=== PATIENT | male | born 1965 | race Caucasian/White ===

== ENCOUNTER 2016-06-26 08:50 | Emergency (ER) | payer BC ==
[2016-06-26 09:19] VITALS: BP 145/81
--- NOTE | 2016-06-26 09:40 | UC ---
Lower Extremity/Ankle HPI - HPI Summary HPI Summary: 50 yo male got his right foot caught in pjs and inverted it pain with wt bearing occurred yesterday able to bear wt with CAM boot hx right foot fx x 2 hx right foot surgery as a teen thinks part of a bone was removed - History of Current Complaint Chief Complaint: UCLowerExtremity Stated Complaint: FOOT COMPLAINT Time Seen by Provider: 06/26/16 09:34 Hx Obtained From: Patient Onset/Duration: Sudden Onset Severity Initially: Moderate Severity Currently: Moderate Pain Intensity: 4 - worse with wt bearing Pain Scale Used: 0-10 Numeric Aggravating Factor(s): Standing, Ambulation Alleviating Factor(s): Rest, Elevation Able to Bear Weight: Yes - with limp - Allergies/Home Medications Allergies/Adverse Reactions: Allergies Allergy/AdvReac Type Severity Reaction Status Date / Time Ciprofloxacin [From Cipro] Allergy Unknown UNK Verified 06/26/16 09:14 Latex Allergy Rash Verified 06/26/16 09:14 PMH/Surg Hx/FS Hx/Imm Hx Previously Healthy: Yes - hx neuropathy Endocrine History Of: Denies: Diabetes, Hyperthyroidism, Hypothyroidism Cardiovascular History Of: Reports: Hypertension - controlled with medication Denies: Cardiac Disorders Neurological History Of: Denies: TIA, Seizures Psychological History Of: Reports: Anxiety Denies: Depression - Surgical History Surgical History: Yes Surgery Procedure, Year, and Place: undescended testicle, 1967. Foot Fracture, 1977. Tonsilectomy, 1983. Vein Stripping, 1989. Appendectomy, 2007. Maurice-n-Y /WLS, 2007. Venous Closure 2008, 2009. Gallbladder removed, 2009 - Family History Known Family History: Positive: Cardiac Disease, Hypertension, Diabetes - Social History Alcohol Use: Rare Substance Use Type: None, Marijuana Substance Use Comment - Amount & Last Used: medical marijuana Smoking Status (MU): Never Smoked Tobacco Review of Systems Constitutional: Negative Skin: Negative Eyes: Negative ENT: Negative Respiratory: Negative Cardiovascular: Negative Gastrointestinal: Negative Genitourinary: Negative Motor: Negative Neurovascular: Negative Musculoskeletal: Arthralgia, Myalgia Neurological: Negative Psychological: Negative All Other Systems Reviewed And Are Negative: Yes Physical Exam Triage Information Reviewed: Yes Appearance: Pain Distress - with wt bearing, Other: - BMI- 48.7 Vital Signs: Initial Vital Signs Temp 97.6 F 06/26/16 09:08 Pulse 63 06/26/16 09:08 Resp 18 06/26/16 09:08 BP 145/81 06/26/16 09:08 Pulse Ox 99 06/26/16 09:08 Vital Signs Reviewed: Yes Eyes: Positive: Conjunctiva Clear ENT: Positive: Hearing grossly normal. Negative: Nasal congestion, Nasal drainage, Trismus, Muffled/hoarse voice Neck: Positive: Supple Respiratory: Positive: Lungs clear, Normal breath sounds, No respiratory distress, No accessory muscle use Cardiovascular: Positive: RRR, No Murmur Musculoskeletal: Positive: Strength Intact Neurological: Positive: Alert Psychological Exam: Normal Skin Exam: Normal Lower Extremity Course/Dx - Course Course Of Treatment: will continue to see his PMD for BP evaluation and treatment. unable to use crutches due to neuropathy. has boot with him from prior foot fracture - Differential Dx/Diagnosis Provider Diagnoses: closed fracture of proximal right 5th metatarsal ( nondisplaced) Discharge - Discharge Plan Condition: Stable Disposition: HOME Patient Education Materials: Foot Fracture in Adults (ED) Referrals: Alejandro Mancuso MD [Medical Doctor] - As Soon As Possible Additional Instructions: foot fracture -nondisplaced fracuture of proximal 5th metatarsal (right) rest elevate joseph ice CAM boot knee scooter call your pain specialist re pain medications Images Feet (Multiple View): 1 - painful here
--- NOTE | 2016-06-26 10:13 | RAD ---
HISTORY: Tender fifth foot, metatarsal injury, right COMPARISONS: None VIEWS: 3, Frontal, lateral, and oblique views of the right foot FINDINGS: BONE DENSITY: Normal. BONES: There is a nondisplaced fracture of the proximal fifth metatarsal, approximately between 1 cm and 2.9 cm from the articular surface JOINTS: There is no arthropathy. ALIGNMENT: There is no dislocation. SOFT TISSUES: Unremarkable. OTHER FINDINGS: None. IMPRESSION: NONDISPLACED TRANSVERSE FRACTURE OF THE PROXIMAL FIFTH METATARSAL
== END 2016-06-26 10:53 | disposition home or self-care (01) ==
LOC: UCEAST 08:50
DX: S92.354A Nondisplaced fracture of fifth metatarsal bone, right foot, initial encounter for closed fracture (principal); X58.XXXA Exposure to other specified factors, initial encounter; Y93.9 Activity, unspecified; Y92.9 Unspecified place or not applicable; Z88.1 Allergy status to other antibiotic agents; I10 Essential (primary) hypertension; Z90.49 Acquired absence of other specified parts of digestive tract; F12.90 Cannabis use, unspecified, uncomplicated
CPT/HCPCS: 99212; G0463

== ENCOUNTER → 2016-06-29 06:46 | Day surgery (SDC) | payer BC ==
[~2016-06-29 06:46] MED LIST: Buffered Lidocaine 1% SYR 3ML* 3 ML/SYR SYRINGE INTRADERM ONE; Bupivacaine 0.5% SDV PF* 30 ML VIAL ONE; Famotidine TAB* 20 MG PO ONE; HYDROcodone/ACETAMIN 5-325 MG* 1 TAB ONE; HYDROcodone/ACETAMIN 5-325 MG* 1 TAB PO PRN; Ketorolac INJ* 30 MG/ML 1 ML VIAL IV PRN; Ketorolac INJ* 30 MG/ML 1 ML VIAL ONE; Lidocaine 1% INJ* 10 MG/ML 30 ML SDV ONE; Metoclopramide TAB* 10 MG PO ONE; Midazolam* 1 MG/ML 2 ML VIAL (2 MG) ONE; Propofol* 10 MG/ML 20 ML BTL IV PUSH ONE; Propofol* 500 MG/50 ML BTL ONE; Sodium Citrate/Citric Acid* 15 ML UDC PO ONE; ceFAZolin 1 GM VIAL(*) ONE; ceFAZolin 2 GM PREMIX (*) 2 GM/50 ML BAG IVPB ONE; fentaNYL* 50 MCG/ML 2 ML VIAL (100 MCG VIAL) IV PRN; fentaNYL* 50 MCG/ML 2 ML VIAL (100 MCG VIAL) ONE
[2016-06-29 10:18] VITALS: BP 144/71
--- NOTE | 2016-06-29 12:03 | OP ---
DATE OF OPERATION: 06/29/16 - [facility] DATE OF : 65 SURGEON: Jamie Lehman DPM HOUSE PARENT: None. ANESTHESIOLOGIST: Alejandro Whaley MD ANESTHESIA: MAC with local. PRE-OPERATIVE DIAGNOSIS: Recurrent fracture of fifth metatarsal on right foot. POST-OPERATIVE DIAGNOSIS: Recurrent fracture of fifth metatarsal on right foot. OPERATIVE PROCEDURE: Open reduction with internal fixation of fifth metatarsal on right foot. PATHOLOGY: None. HEMOSTASIS: Pneumatic ankle tourniquet. ESTIMATED BLOOD LOSS: Less than 10 cc. MATERIALS: A 4.0 mm partially threaded Synthes screw. INDICATIONS: The patient with recurrent fracture within a 6-month period, in the proximal aspect of the fifth metatarsal. While there is minimal displacement noted, the area appears to be in a very close proximity to recent fracture, which was healed as of March 2016. He tripped just two nights ago , felt a sharp pain and heard a crack, and radiographs confirmed fracture. Open reduction with internal fixation recommended due to recurrence of this fracture, fat stability as well as offer some compression and ideally to improve chances and rate of healing. DESCRIPTION OF PROCEDURE: The patient was brought to the operating room, placed on the operating room table in supine position. The anesthesia department administered IV sedation and a peripheral nerve block was performed about the right foot with a 1:1 mixture of 1% lidocaine plain and 0.5% Marcaine plain. The right foot was prepped and draped in the usual fashion. An Esmarch bandage was utilized to exsanguinate the right foot and the pneumatic ankle tourniquet was inflated to 250 mmHg about a well-padded right ankle. Attention was directed to the dorsolateral aspect of the right foot over the base of the fifth metatarsal region. The linear incision was deepened through subcutaneous tissues with care being taken to retract neurovascular structures and to cauterize superficial bleeders as needed. Dissection was carried down to the periosteum and deep fascia where a fascial plane was created. With adequate exposure, a linear periosteal incision was made at the styloid process. The reflected tissue to allow for adequate access and implant of the screw. The fracture site was visualized and there was noted to be local hematoma, no gross displacement. Using a 2.5 mm drill proximally to distally through the fifth metatarsal with fluoroscopy guidance. A countersink was used and then a size 50 mm 4.0 partially threaded Synthes screw was placed longitudinally across the fracture site while compressing and reducing the fracture site. This being done , fluoroscopy was used to confirm placement of the screw as well as reduction and stability of the fracture. This surgical site was flushed with copious amounts of normal sterile saline. The periosteal deep fascia was reapproximated with 4-0 Polysorb. Subcutaneous tissues were reapproximated with 4- 0 Polysorb and skin was closed with 4-0 and 5-0 nylon. Surgical site was dressed with Xeroform gauze, sterile compressive dressing with 4x4 gauze, Kiran and some Webril and a Coban wrap for compression. The patient will be instructed to be nonweightbearing, he has a knee to facilitate this, he also has a cam boot to protect the foot if he does put weight on his heel. Having appeared to have tolerated the procedure and anesthesia well, the patient was transported via cart from the operating room to Recovery in satisfactory condition with cap refill less than 3 seconds to all digits of the right foot. [id number]/[facility] #: [id number] MIRTA
--- NOTE | 2016-06-30 15:21 | RAD ---
INDICATION: Tender fifth metatarsal, right fifth metatarsal fracture, trauma, pain COMPARISONS: June 26, 2016 TECHNIQUE: Fluoroscopy was provided for a surgical procedure. Total fluoroscopy time is: 2 minutes, 4 seconds FINDINGS: Spot images demonstrate internal fixation of the proximal fifth metatarsal IMPRESSION: FLUOROSCOPY WAS PROVIDED FOR A SURGICAL PROCEDURE CPT II Codes: 6045F
== END | disposition home or self-care (01) ==
LOC: OREAST 06:46
PROVIDERS: ATTEND Podiatrist Foot Surgery
DX: S92.351A Displaced fracture of fifth metatarsal bone, right foot, initial encounter for closed fracture (principal); W18.40XA Slipping, tripping and stumbling without falling, unspecified, initial encounter; Y92.9 Unspecified place or not applicable; E66.01 Morbid (severe) obesity due to excess calories; I10 Essential (primary) hypertension; G47.33 Obstructive sleep apnea (adult) (pediatric); N40.0 Benign prostatic hyperplasia without lower urinary tract symptoms; M19.90 Unspecified osteoarthritis, unspecified site; Z88.1 Allergy status to other antibiotic agents; Z98.84 Bariatric surgery status; F41.9 Anxiety disorder, unspecified; F32.9 Major depressive disorder, single episode, unspecified; G60.8 Other hereditary and idiopathic neuropathies
CPT/HCPCS: 76000; C1713; J0690; J1885; J2250; J2704; J3010

== ENCOUNTER 2019-01-06 10:39 | Emergency (ER) | payer BC ==
--- OUTSIDE RECORDS SUMMARY | 2019-01-06 11:24 | XMS REPORT | Continuity of Care Document ---
:1965 External Reference #:[id number] Author Name Marika Torres M.D. (transmitted by agent of provider Wendy Tellez) Address [address] [address] Care Team Providers Name Role Phone Kwame Mcclendon MD - Endocrinology, Care Team Information Group Home Supervisor Diabetes & Metabolism Problems Active Problems Provider Date Benign essential hypertension Marika Torres M.D. Onset: 05/17/2011 Electrocardiogram abnormal Marika Torres M.D. Onset: 05/17/2011 Mitral valve disorder Marika Torres M.D. Onset: 05/17/2011 Morbid obesity Marika Torres M.D. Onset: 07/26/2011 Chest pain Marika Torres M.D. Onset: 07/26/2011 Aortic valve disorder Marika Torres M.D. Onset: 05/17/2012 Dyspnea Marika Torres M.D. Onset: 01/15/2014 Edema Marika Torres M.D. Onset: 01/15/2014 Essential hypertension Marika Torres M.D. Onset: 09/24/2015 Nonunion of fracture Luis Aguilera MD Onset: 04/13/2017 Congenital pes cavus Luis Aguilera MD Onset: 04/13/2017 Idiopathic progressive polyneuropathy Luis Aguilera MD Onset: 04/13/2017 Social History Type Date Description Comments Sex Unknown Tobacco Use Start: Unknown Never Smoked Cigarettes Smoking Status Reviewed: 12/11/18 Never Smoked Cigarettes ETOH Use Never used alcohol Recreational Drug Use Medical marijuana prn Tobacco Use Start: Unknown Patient has never smoked Exercise Type/Frequency Does not exercise Allergies, Adverse Reactions, Alerts Active Allergies Reaction Severity Comments Date Latex 01/04/2006 Cipro elevated bilirubin 05/17/2011 Enviromental Allergies 09/23/2018 Medications Active Medications SIG Qnty Indications Ordering Date Provider Hydrochlorothiazide 1 by mouth 90tabs Qutayb S. 01/15/2014 25mg Tablets every day Pasha Torres Albuterol Inhalation 2 Puffs qid Jennataybbjorn S. 01/04/2006 90mcg/Dose prn Pasha Torres Aerosol C-Pap For apnea tayb S. 01/04/2006 Capsules Pasha Torres Cymbalta 1 tablet po Unknown 60mg Caps DR Part tid Flovent HFA inhale 1 puff 1units Unknown 220mcg/Act Aerosol po bid prn Tamsulosin HCL 1 po qd 30caps Unknown 0.4mg Capsules Finasteride 1 po qd 90tabs Unknown 5mg Tablets Lisinopril 1 po qd 30tabs Unknown 40mg Tablets Lyrica tid Unknown 100mg Solution Viagra as needed Enio Szymanski, 100mg Tablets Medical Marijuana as needed Unknown Vapor (Dr. Marsh) Belbuca 1 film by Unknown 75mcg Film mouth twice daily Saxenda inject subcu Unknown 18mg/3ML Solution once a day Pen-Inject Medications Administered in Office Medication SIG Qnty Indications Ordering Provider Date Depomedrol 80MG Tyler Huizar M.D. 08/25/2011 Injection Immunizations Description No Information Available Vital Signs Date Vital Result Comment 12/11/2018 2:07pm BP Systolic Sitting 102 mmHg recheck LA, reg cuff BP Diastolic Sitting 62 mmHg recheck LA, reg cuff BP Systolic Standing 103 mmHg recheck LA, home unit BP Diastolic Standing 72 mmHg recheck LA, home unit 12/11/2018 1:44pm Height 73 inches 6'1" Weight 349.12 lb with shoes Heart Rate 58 /min radial, regular BP Systolic Sitting 126 mmHg LA, reg cuff BP Diastolic Sitting 66 mmHg LA, reg cuff BP Systolic Standing 90 mmHg LA, reg cuff BP Diastolic Standing 58 mmHg LA, reg cuff BP Systolic Lying Down 116 mmHg LA sitting, home unit BP Diastolic Lying Down 80 mmHg LA sitting, home unit BMI (Body Mass Index) 46.1 kg/m2 Ejection Fraction 60-65% Echocardiogram 12/26/2017 Results Description No Information Available Procedures Date Code Description Status 12/11/2018 44993 EKG Tracing & Interpretation Completed 07/04/2018 88042 EKG Tracing & Interpretation Completed 02/01/2016 12246578 Colonoscopy Completed Medical Devices Description No Information Available Encounters Type Date Location Provider Dx Diagnosis Office Visit 09/23/2018 Pulmonology And Daniela Victoria, G47.33 Obstructive sleep 9:30a Sleep Services Of apnea (adult) Mamie (pediatric) R53.83 Other fatigue Office Visit 07/04/2018 11:30a [facility] Dalila Ace I71.9 Aortic aneurysm of Of Mamie Meyer, N.P. unspecified site, without rupture I10 Essential (primary) hypertension G47.30 Sleep apnea, unspecified Assessments Date Code Description Provider 12/11/2018 G47.33 Obstructive sleep apnea (adult) Marika Torres M.D. (pediatric) 12/11/2018 I77.819 Aortic ectasia, unspecified site Marika Torres M.D. 12/11/2018 I10 Essential (primary) hypertension Marika Torres M.D. 09/23/2018 G47.33 Obstructive sleep apnea (adult) Daniela Victoria MD (pediatric) 09/23/2018 R53.83 Other fatigue Daniela Victoria MD 07/04/2018 R53.83 Other fatigue Marika Torres M.D. 07/04/2018 I71.9 Aortic aneurysm of unspecified site, Dalila Meyer, N.P. without rupture 07/04/2018 I10 Essential (primary) hypertension Marika Torres M.D. 07/04/2018 I10 Essential (primary) hypertension Dalila Meyer, N.P. 07/04/2018 G47.30 Sleep apnea, unspecified Kobe Montgomery.Josephine. Plan of Treatment Future Appointment(s):12/27/2018 10:00 am - Nurse Visit cc at [facility]12/30/2018 1:00 pm - [facility] Schedule at [facility]2018 - Marika Torres M.D.G47.33 Obstructive sleep apnea (adult) ( pediatric)I77.819 Aortic ectasia, unspecified siteNew Orders:Echocardiogram, Scheduled: 12/30/18Follow up:10 months ovI10 Essential (primary) hypertensionFollow up:nurse BP check 2 weeks Functional Status Description No Information Available Mental Status Description No Information Available Referrals Refer to Reason for Referral Status Appt Date Daniela Victoria MD to re-establish for DAVI saw Dr. olson in the Sent past [address] [place] [phone]
--- OUTSIDE RECORDS SUMMARY | 2019-01-06 11:24 | XMS REPORT | Continuity of Care Document ---
:1965 External Reference #:[id number] Author Name RALPH Bose Address [address] [facility] [place] [address] Care Team Providers Name Role Phone Kwame Mcclendon M.D. - Family Medicine Care Team Information Special Librarian Problems Active Problems Provider Date Body mass index 40+ - severely obese Laron Hayes Onset: 02/07/2018 Varicose veins of lower extremity Laron Hayes Onset: 02/07/2018 Social History Type Date Description Comments Sex Unknown ETOH Use Very limited Tobacco Use Start: Unknown Patient has never smoked Recreational Drug Use Never Used Drugs Recreational Drug Use Uses medical marijuana Smoking Status Reviewed: 07/02/18 Patient has never smoked Allergies, Adverse Reactions, Alerts Active Allergies Reaction Severity Comments Date Latex Contact dermatitis, Urticaria 02/07/2018 Cipro elevated liver count 02/07/2018 Medications Active Medications SIG Qnty Indications Ordering Date Provider Belbuca 2 daily Unknown 300mcg Film Lyrica 3 x's daily Unknown 100mg Capsules Cymbalta 3 x's Kwame Mcclendon M.D. 60mg Caps DR Part Baclofen as needed, Unknown 10mg Tablets max 3x's daily Tamsulosin HCL 1x Enio Szymanski, 0.4mg Capsules M.D. Finasteride 1x Enio Szymanski, 5mg Tablets M.D. Hydrochlorothiazide 1x Maghaydquiana, 25mg Tablets Pasha Hairston Amlodipine Besylate 1x Maghaydquiana, 10mg Tablets Pasha Hairston Lisinopril 1x Maghaydah, 40mg Tablets Pasha Hairston SaxKwame Gonzales M.D. 18mg/3ML Solution Pen-Inject Medical Marijuanna Unknown Liothyronine Sodium 1X a . day Kwame Mcclendon M.D. 25mcg Tablets Immunizations CPT Code Status Date Vaccine Lot # [id number] Given 01/07/2018 Influenza Vaccine 29040-145-25 Vital Signs Date Vital Result Comment 12/05/2018 10:33am Height 75 inches 6'3" Weight 382.00 lb BP Systolic 129 mmHg BP Diastolic 75 mmHg BMI (Body Mass Index) 47.7 kg/m2 Heart Rate 59 /min Respiratory Rate 18 /min 09/17/2018 8:57am Height 75 inches 6'3" Weight 382.00 lb BP Systolic 131 mmHg BP Diastolic 65 mmHg BMI (Body Mass Index) 47.7 kg/m2 Heart Rate 68 /min Respiratory Rate 18 /min Results Description No Information Available Procedures Date Code Description Status 09/17/2018 03425 Injection Sclerosing Solution Multiple Veins Same Leg Completed 08/15/2018 31545 Injection Sclerosing Solution Multiple Veins Same Leg Completed 07/16/2018 53235 Injection Sclerosing Solution Multiple Veins Same Leg Completed 06/28/2018 43758 Injection Sclerosing Solution Multiple Veins Same Leg Completed Medical Devices Description No Information Available Encounters Type Date Location Provider Dx Diagnosis Office Visit 12/05/2018 [facility] RALPH Bose I83.892 Varicose veins of l 10:30a low extrem with other complications I83.891 Varicose veins of r low extrem with other complications Z68.42 Body mass index (BMI) 45.0-49.9, adult Assessments Date Code Description Provider 12/05/2018 I83.892 Varicose veins of left lower extremity with other RALPH Bose complicati 12/05/2018 I83.891 Varicose veins of right lower extremity with RALPH Bose other complicat 12/05/2018 Z68.42 Body mass index (BMI) 45.0-49.9, adult RALPH Bose 09/17/2018 I83.892 Varicose veins of left lower extremity with other Khushbu Olson, RALPH complicati 09/17/2018 Z68.42 Body mass index (BMI) 45.0-49.9, adult RALPH Bose 08/15/2018 I83.892 Varicose veins of left lower extremity with other Khushbu Wesley, RALPH complicati 07/16/2018 I83.892 Varicose veins of left lower extremity with other Khushbu Wesley, RALPH complicati 07/16/2018 Z68.41 Body mass index (BMI) 40.0-44.9, adult RALPH Bose 06/28/2018 I83.891 Varicose veins of right lower extremity with RALPH Bose other complicat 06/28/2018 Z68.41 Body mass index (BMI) 40.0-44.9, adult RALPH Bose Plan of Treatment Future Appointment(s):02/06/2019 10:30 am - RALPH Bose at [facility] [id number]/06 10:30 am - RALPH Bose at [facility] Functional Status Description No Information Available Mental Status Description No Information Available Referrals Description No Information Available
[2019-01-06 11:32] VITALS: BP 138/68
--- NOTE | 2019-01-06 11:43 | UC ---
Throat Pain/Nasal Jordan HPI - HPI Summary HPI Summary: 53 year old male with PMH + for gastric bypass, prostatitis presents with S/S of cold similar to symtpoms his family had last week, however their symptoms resolved and his developed into increased nasal congestion, worse on L side, chills, fever worse at night, Tmax 101, nausea, non-productive cough, headache- frontal. Patient also c/o anal pain x 2-3 days, worse with sitting, defecation, feels like has to have bowel motion frequently. + constipation earlier in week, but bowel irregular due to gastric bypass. Also has HTN, has had medications adjusted due to recent weight loss and is having low blood pressures. no ear pain, throat pain. - History of Current Complaint Chief Complaint: UCRespiratory Stated Complaint: FLU SYMPTOMS Time Seen by Provider: 01/06/19 11:36 Hx Obtained From: Patient Onset/Duration: Sudden Onset, Lasting Days Severity: Moderate Pain Intensity: 9 Pain Scale Used: 0-10 Numeric Cough: Nonproductive Associated Signs & Symptoms: Positive: Sinus Discomfort, Nasal Discharge, Fever. Negative: Dysphagia - Allergies/Home Medications Allergies/Adverse Reactions: Allergies Allergy/AdvReac Type Severity Reaction Status Date / Time ciprofloxacin [From Cipro] Allergy Unknown Verified 01/06/19 11:32 Reaction Details latex Allergy Rash Verified 01/06/19 11:32 Home Medications: Home Medications Buprenorphine HCl [Belbuca] 450 mcg BU 01/06/19 [History] Liraglutide [Saxenda] 3 mg SQ 01/06/19 [History] PMH/Surg Hx/FS Hx/Imm Hx Previously Healthy: Yes Cardiovascular History: Hypertension GI/ History: Other - Surgical History Surgical History: Yes Surgery Procedure, Year, and Place: undescended testicle, 1967. Foot Fracture, 1977. Tonsilectomy, 1983. Vein Stripping, 1989. Appendectomy, 2007. Maurice-n-Y /WLS, 2007. Venous Closure 2008, 2009. Gallbladder removed, 2009 - Family History Known Family History: Positive: Cardiac Disease, Hypertension, Diabetes - Social History Alcohol Use: Rare Substance Use Type: None Substance Use Comment - Amount & Last Used: medical marijuana for neuropathy Smoking Status (MU): Never Smoked Tobacco Review of Systems All Other Systems Reviewed And Are Negative: Yes Constitutional: Positive: Fever, Chills, Fatigue ENT: Positive: Nasal Discharge, Sinus Congestion, Sinus Pain/Tenderness Respiratory: Positive: Cough Genitourinary: Positive: Other - anal pain Psychological: Positive: Negative Is Patient Immunocompromised?: No Physical Exam Triage Information Reviewed: Yes Appearance: No Pain Distress, Well-Nourished, Ill-Appearing - minimal Vital Signs: Initial Vital Signs Temp 97.7 F 01/06/19 11:28 Pulse 75 01/06/19 11:28 Resp 18 01/06/19 11:28 BP 138/68 01/06/19 11:28 Pulse Ox 100 01/06/19 11:28 Vital Signs Reviewed: Yes Eyes: Positive: Conjunctiva Clear ENT: Positive: Pharynx normal, TMs normal, Sinus tenderness - b/l frontal, max, L>R, Uvula midline. Negative: Pharyngeal erythema, TM bulging, TM dull, TM red , Tonsillar swelling, Tonsillar exudate Neck: Positive: Supple, Nontender, No Lymphadenopathy Respiratory: Positive: Chest non-tender, Lungs clear, Normal breath sounds, No respiratory distress, No accessory muscle use. Negative: Respiratory distress, Crackles, Rhonchi, Stridor, Wheezing Cardiovascular: Positive: RRR, No Murmur Abdomen Description: Positive: Nontender, No Organomegaly, Soft. Negative: CVA Tenderness (R), CVA Tenderness (L), Distended, Guarding, Hepatomegaly, McBurney' s Point Tenderness, Splenomegaly Male Genital Exam: Positive: Other - normal appearing rectum externally, TTP at 12 position with internal exam with no masses palpated, no abscess, no erythema , drainage noted. no LAD. Neurological: Positive: Alert Psychological Exam: Normal Skin Exam: Normal Throat Pain/Nasal Course/Dx - Course Course Of Treatment: Sinusitis: - Antibiotic as directed, three times daily x 7 days - Increase fluid intake - Tylenol as needed for pain, fever - Go to ER with fever >101, increased pain, lightheadedness, dizziness. Rectal Fissure: - Medication as needed for pain - If symptoms continue, follow up with primary physician within 2-3 days Urinary symptoms - Urine sent for culture, will follow up in 2-3 days with you if cultures positive - Differential Dx/Diagnosis Differential Diagnosis/HQI/PQRI: Sinusitis, Tonsillitis, URI Provider Diagnosis: Sinusitis Discharge ED - Sign-Out/Discharge Documenting (check all that apply): Patient Departure All imaging exams completed and their final reports reviewed: No Studies - Discharge Plan Condition: Good Disposition: HOME Prescriptions: Amoxicillin PO (*) [Amoxicillin 500 MG CAP*] 500 mg PO TID #21 cap Hemorrhoidal SUPP* [Preparation H Supp*] 1 supp NC Q12H PRN #1 box PRN Reason: rectal spasm Lidocaine 2% JELLY* 5 ml TOPICAL TID PRN #1 tube PRN Reason: rectal pain Patient Education Materials: Anal Fissure (ED), Sinusitis (ED) Forms: *Work Release Referrals: Kwame Mcclendon MD [Primary Care Provider] - Additional Instructions: Sinusitis: - Antibiotic as directed, three times daily x 7 days - Increase fluid intake - Tylenol as needed for pain, fever - Go to ER with fever >101, increased pain, lightheadedness, dizziness. Rectal Fissure: - Medication as needed for pain - If symptoms continue, follow up with primary physician within 2-3 days Urinary symptoms - Urine sent for culture, will follow up in 2-3 days with you if cultures positive - Billing Disposition and Condition Condition: GOOD Disposition: Home
--- NOTE | 2019-01-08 10:17 | UC ---
- Progress Note Progress Note: urine culture final neg no change [id number] Course/Dx - Diagnoses Provider Diagnoses: Sinusitis Discharge ED - Sign-Out/Discharge Documenting (check all that apply): Post-Discharge Follow Up All imaging exams completed and their final reports reviewed: No Studies - Discharge Plan Condition: Good Disposition: HOME Prescriptions: Amoxicillin PO (*) [Amoxicillin 500 MG CAP*] 500 mg PO TID #21 cap Hemorrhoidal SUPP* [Preparation H Supp*] 1 supp DE Q12H PRN #1 box PRN Reason: rectal spasm Lidocaine 2% JELLY* 5 ml TOPICAL TID PRN #1 tube PRN Reason: rectal pain Patient Education Materials: Anal Fissure (ED), Sinusitis (ED) Forms: *Work Release Referrals: Kwame Mcclendon MD [Primary Care Provider] - Additional Instructions: Sinusitis: - Antibiotic as directed, three times daily x 7 days - Increase fluid intake - Tylenol as needed for pain, fever - Go to ER with fever >101, increased pain, lightheadedness, dizziness. Rectal Fissure: - Medication as needed for pain - If symptoms continue, follow up with primary physician within 2-3 days Urinary symptoms - Urine sent for culture, will follow up in 2-3 days with you if cultures positive - Billing Disposition and Condition Condition: GOOD Disposition: Home
== END 2019-01-06 12:44 | disposition home or self-care (01) ==
LOC: UCEAST 10:39
DX: J32.9 Chronic sinusitis, unspecified (principal); N41.9 Inflammatory disease of prostate, unspecified; K62.89 Other specified diseases of anus and rectum; I10 Essential (primary) hypertension; Z98.84 Bariatric surgery status; Z88.1 Allergy status to other antibiotic agents; Z91.040 Latex allergy status
CPT/HCPCS: 81003; 87086; 99212; G0463

== ENCOUNTER 2019-01-07 19:20 | Emergency (ER) | payer BC ==
--- NOTE | 2019-01-07 22:12 | ED ---
GI/ HPI - HPI Summary HPI Summary: Patient complains of subjective fever, diffuse body aches, rectal pain starting 01/01/19. Patient went to urgent care 01/06, diagnosed with fissure and hemorrhoids and sinusitis. Patient given prescription for amoxicillin, topical hemorrhoid cream and suppositories. Patient denies prior history of hemorrhoids. Patient states he has been straining to defecate recently. Denies cough, sore throat, CP, SOB, N/V/V abdominal pain, change in urine, change in BM. States medical history is neuropathy. History of gastric bypass. - History of Current Complaint Chief Complaint: EDGeneral Time Seen by Provider: 01/07/19 21:55 Stated Complaint: FEVER,CLAMMY PER PT Hx Obtained From: Patient Onset/Duration: Started Days Ago Timing: Constant Severity: Mild Current Severity: Severe Pain Intensity: 8 Location of Pain: Rectal Pain Characteristics: Sharp, Aching Associated Signs and Symptoms: Positive: Negative - Allergy/Home Medications Allergies/Adverse Reactions: Allergies Allergy/AdvReac Type Severity Reaction Status Date / Time ciprofloxacin [From Cipro] Allergy Unknown Verified 01/07/19 19:29 Reaction Details latex Allergy Rash Verified 01/07/19 19:29 Home Medications: Home Medications Cyanocobalamin TAB* [Vitamin B12 TAB*] 100 mcg PO DAILY 01/07/19 [History Confirmed 01/07/19] PMH/Surg Hx/FS Hx/Imm Hx Endocrine/Hematology History: Denies: Hx Diabetes Cardiovascular History: Reports: Hx Hypertension - controlled with medication, Hx Valvular Heart Disease - being monitored by Dr. Torres, Other Cardiovascular Problems/Disorders - "severe" varicose veins Denies: Hx Hypercholesterolemia, Hx Peripheral Vascular Disease Respiratory History: Reports: Hx Sleep Apnea GI History: Reports: Other GI Disorders - gastric bypass 2007 History: Reports: Other Problems/Disorders - hx of UTI, last episode was 6 yrs ago Musculoskeletal History: Denies: Hx Arthritis, Hx Rheumatoid Arthritis, Hx Osteoporosis Sensory History: Denies: Hx Cataracts, Hx Contacts or Glasses, Hx Glaucoma, Hx Hearing Aid Opthamlomology History: Denies: Hx Cataracts, Hx Contacts or Glasses, Hx Glaucoma Neurological History: Reports: Hx Nerve Disease - genetic neuropathy Denies: Hx Headaches, Hx Seizures, Hx Transient Ischemic Attacks (TIA) Psychiatric History: Reports: Hx Anxiety Denies: Hx Depression - Surgical History Surgery Procedure, Year, and Place: undescended testicle, 1967. Foot Fracture, 1977. Tonsilectomy, 1983. Vein Stripping, 1989. Appendectomy, 2007. Maurice-n-Y /WLS, 2007. Venous Closure 2008, 2009. Gallbladder removed, 2009 Hx Anesthesia Reactions: No Infectious Disease History: No Infectious Disease History: Denies: Traveled Outside the [place] in Last 30 Days - Family History Known Family History: Positive: Cardiac Disease, Hypertension, Diabetes - Social History Alcohol Use: Rare Substance Use Type: Reports: None Substance Use Comment - Amount & Last Used: medical marijuana for neuropathy Smoking Status (MU): Never Smoked Tobacco Review of Systems Positive: Fever Eyes: Negative ENT: Negative Cardiovascular: Negative Respiratory: Negative Gastrointestinal: Negative Genitourinary: Negative Musculoskeletal: Negative Skin: Negative Neurological: Negative Psychological: Normal All Other Systems Reviewed And Are Negative: Yes Physical Exam - Summary Physical Exam Summary: Thrombosed hemorrhoid noted at 12 o'clock position on exam of rectum. Rectal exam otherwise unremarkable. Triage Information Reviewed: Yes Vital Signs On Initial Exam: Initial Vitals Temp Pulse Resp BP Pulse Ox 97.2 F 82 16 160/97 98 01/07/19 19:25 01/07/19 19:25 01/07/19 19:25 01/07/19 19:25 01/07/19 19:25 Vital Signs Reviewed: Yes Appearance: Positive: Well-Appearing Skin: Positive: Warm Head/Face: Positive: Normal Head/Face Inspection Eyes: Positive: Normal ENT: Positive: Normal ENT inspection Neck: Positive: Supple Respiratory/Lung Sounds: Positive: Clear to Auscultation Cardiovascular: Positive: Normal Abdomen Description: Positive: Nontender Musculoskeletal: Positive: Normal Neurological: Positive: Normal Psychiatric: Positive: Normal AVPU Assessment: Alert - [place] Coma Scale Best Eye Response: 4 - Spontaneous Best Motor Response: 6 - Obeys Commands Best Verbal Response: 5 - Oriented Coma Scale Total: 15 Procedures - Sedation Patient Received Moderate/Deep Sedation with Procedure: No Diagnostics - Vital Signs Vital Signs Temp Pulse Resp BP Pulse Ox 01/07/19 21:40 98.1 F 71 16 128/65 96 01/07/19 19:25 97.2 F 82 16 160/97 98 - Laboratory Result Diagrams: 01/07/19 22:49 01/07/19 22:49 Lab Statement: Any lab studies that have been ordered have been reviewed, and results considered in the medical decision making process. GIGU Course/Dx - Course Course Of Treatment: Patient complains of subjective fever, diffuse body aches, rectal pain starting 01/01/19. Patient went to urgent care 01/06, diagnosed with fissure and hemorrhoids and sinusitis. Patient given prescription for amoxicillin, topical hemorrhoid cream and suppositories. Patient denies prior history of hemorrhoids. Patient states he has been straining to defecate recently. Denies cough, sore throat, CP, SOB, N/V/V abdominal pain, change in urine, change in BM. States medical history is neuropathy. History of gastric bypass. Vital signs within normal limits. Labs ordered due to patient's claim of subjective fever and history of recurrent sepsis. WBC 16. CRP 69. Labs otherwise within normal limits. Excision of thrombosed hemorrhoid deferred to surgery. Patient referred to surgery. Advised to continue taking amoxicillin for sinusitis. Patient already has prescription for topical lidocaine and suppositories. - Diagnoses Provider Diagnoses: Sinusitis, External thrombosed hemorrhoids Discharge ED - Sign-Out/Discharge Documenting (check all that apply): Patient Departure - Discharge Plan Condition: Stable Disposition: HOME Patient Education Materials: Sinusitis (ED), Thrombosed Hemorrhoid (ED), Warm Compress or Soak (ED) Referrals: Kwame Mcclendon MD [Primary Care Provider] - Andrew Bueno MD [Medical Doctor] - Additional Instructions: Warm sitz baths for thrombosed hemorrhoid. Follow-up with general surgery Dr. Bueno for further evaluation. Continue taking antibiotics for sinusitis. Follow-up with primary care for monitoring of your sinusitis. - Billing Disposition and Condition Condition: STABLE Disposition: Home - Attestation Statements Provider Attestation: I was available for consult. This patient was seen by the YOHANNES. The patient was not presented to, seen by, or examined by me. Jony Fagan MD
[2019-01-07 22:57] LABS: ABS Basophils 0.1 10^3/ul (0-0.2); ABS Eosinophils 0.3 10^3/ul (0-0.6); ABS Monocytes 1.1 10^3/ul (0-0.8); ABS Neutrophils 12.4 10^3/ul (1.5-7.7); Eosinophil % 2.2 %; Hematocrit 36 % (42-52); Hemoglobin 12.1 g/dL (14.0-18.0); Lymphocyte % 12.7 %; Mean Corpuscular HGB Conc 34 g/dL (31-36); Mean Corpuscular Hemoglobin 29 pg (27-31); Mean Corpuscular Volume 86 fL (80-94); Mean Platelet Volume 7.6 fL (7.4-10.4); Platelet Count 303 10^3/uL (150-450); Red Blood Count 4.17 10^6 /uL (4.18-5.48); Red Cell Distribution Width 14 % (10-15)
[2019-01-07 23:16] LABS: Albumin 3.4 g/dL (3.2-5.2); Albumin/Globulin Ratio 1.2 (1-3); BUN/Creatinine Ratio 14.6 (8-20); C Reactive Protein 69.14 mg/L (<8.01); Calcium 8.6 mg/dL (8.6-10.3); EGFR African American 118.9 (>60); EGFR Non-African American 98.3 (>60); Globulin 2.8 g/dL (2-4); Potassium 3.8 mmol/L (3.5-5.0); Total Bilirubin 0.7 mg/dL (0.2-1.0); Total Protein 6.2 g/dL (6.4-8.9)
[2019-01-08] MEDS ORDERED: Lidocaine 2% JELLY* 6 ML JELLY TOPICAL ONE (00:02)
[2019-01-08] MEDS: Lidocaine 2% JELLY* 10 ML JELLY TOPICAL ONE (00:25)
[2019-01-08 00:53] VITALS: BP 149/77
== END 2019-01-07 23:51 | disposition home or self-care (01) ==
LOC: ED 19:20
DX: J32.9 Chronic sinusitis, unspecified (principal); K64.5 Perianal venous thrombosis; I10 Essential (primary) hypertension; I38 Endocarditis, valve unspecified; Z90.49 Acquired absence of other specified parts of digestive tract; Z79.899 Other long term (current) drug therapy; Z88.1 Allergy status to other antibiotic agents; Z91.040 Latex allergy status
CPT/HCPCS: 36415; 80053; 83605; 85025; 86140; 99282; A9270-GY